=== PATIENT | male | born 1970 | race American Indian/Alaskan Native ===

== ENCOUNTER 2017-09-25 09:07 | Emergency (ER) | payer OTHER ==
[2017-09-25] MEDS ORDERED: Ibuprofen 800 MG Tab PO ONE (09:29)
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
--- NOTE | 2017-09-25 10:09 | CR ---
Clinical history: 47-year-old male left knee pain. Interpretation: Chondral malacia patella. Symmetric normal spacing of the knee joint without other arthritic degenerative change. No left knee joint effusion, fracture, dislocation or radiopaque loose joint body. No foreign bodies.
--- NOTE | 2017-09-25 10:10 | CR ---
Clinical history: 47-year-old male left lower extremity pain. 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 No sign of pathologic skeletal lesion, long bone tip/fib fracture or left knee/ankle joint dislocatio n. No foreign bodies. CONCLUSION: Mild abnormality patella. Negative left lower extremity.
--- NOTE | 2017-09-25 10:12 | CR ---
Clinical history: 47-year-old male left foot pain. Interpretation: Mild hallux valgus and early arthritic changes first metatarsophalangeal joint. No sign of foreign body, inflammatory periostitis, left foot fracture or dislocation. Very tiny heel spurs forming
== END 2017-09-25 10:10 | disposition home or self-care (01) ==
LOC: DL.ED 09:07
DX: S86.912A Strain of unspecified muscle(s) and tendon(s) at lower leg level, left leg, initial encounter (principal); S90.32XA Contusion of left foot, initial encounter; X50.1XXA Overexertion from prolonged static or awkward postures, initial encounter
CPT/HCPCS: 73562; 73590; 73620; 99284; A9270

== ENCOUNTER → 2024-02-03 | Day surgery (SDC) | payer OTHER ==
[~2024-02-03] MED LIST: Midazolam 1 MG/ML 2 ML SDV ONE; fentaNYL 100 MCG/2 ML SDV ONE
[2024-02-03] MEDS: Dextrose 5%-0.45% NaCl 1,000 ML IV SCH (07:00)
[2024-02-03] MEDS: fentaNYL 100 MCG/2 ML SDV IV ONE ×2 (07:41→07:42)
[2024-02-03] MEDS: Midazolam 1 MG/ML 2 ML SDV IV ONE ×4 (07:42→07:48)
== END ==
LOC: DL.ENDO 06:36
PROVIDERS: ATTEND Internal Medicine Gastroenterology
DX: Z12.11 Encounter for screening for malignant neoplasm of colon (principal); I10 Essential (primary) hypertension; E78.5 Hyperlipidemia, unspecified; E66.9 Obesity, unspecified
CPT/HCPCS: 45378; J2250; J3010; J7042

== ENCOUNTER 2025-06-08 20:48 | Emergency (ER) | payer MEDICAID, OTHER ==
[2025-06-08] MEDS ORDERED: Iopamidol 755 Mg/ML 100 ML Bottle IVPUSH ONE (21:06)
[2025-06-08 21:23] LABS: BASOPHILS PERCENT AUTO 0.5 % (0.0-1.0); EOSINOPHILS PERCENT AUTO 2.0 % (1.0-3.0); LYMPHOCYTES PERCENT AUTO 21.6 % (20.5-50.1); MONOCYTES PERCENT AUTO 10.4 % (2-8); NEUTROPHILS PERCENT AUTO 65.5 % (42.2-75.2); PLATELET COUNT,PLT 226 10^3/uL (150-450); RED BLOOD CELL COUNT 5.29 10^6/uL (4.6-6.2); WHITE BLOOD CELL COUNT,WBC 10.9 10^3/uL (5.0-10.0)
[2025-06-08 21:39] LABS: ALANINE AMINOTRANSFERASE,ALT 51.0 U/L (16-63); ASPARTATE AMNIOTRANSFERASE,AST 28.0 U/L (15-37); BILIRUBIN TOTAL 0.5 mg/dL (0.2-1.0); BLOOD UREA NITROGEN,BUN 23.0 mg/dL (7-18); CARBON DIOXIDE,CO2 32.0 mmol/L (21-32); CHLORIDE,CL 90.0 mmol/L (98-107); CREATININE 2.44 mg/dL (0.70-1.30); EST CRCL DRUG DOSING (CG) 38.43 mL/min; ETHANOL BLOOD MEDICAL 52.0 mg/dL (0); GLUCOSE RANDOM 104.0 mg/dL (70-99); POTASSIUM,K 3.2 mmol/L (3.5-5.1); PROTEIN TOTAL,TP 7.3 g/dL (6.4-8.2); SODIUM,NA 130.0 mmol/L (136-145); TSH ULTRASENSITIVE 6.96 uIU/mL (0.36-3.74)
[2025-06-08 21:49] LABS: A/G RATIO 1.21
[2025-06-08 21:50] LABS: ESTIMATED GFR 31.0 mL/min (>=60)
[2025-06-08 21:57] LABS: LACTIC ACID 1.4 mmol/L (0.4-2.0)
[2025-06-08 22:24] LABS: APPEARANCE,URINE CLEAR (CLEAR); GLUCOSE,URINE NEGATIVE (NEGATIVE); OCCULT BLOOD,URINE TRACE-INTACT (NEGATIVE)
[2025-06-08 22:30] LABS: AMPHETAMINES,URINE NEGATIVE (NEGATIVE); BARBITURATES,URINE NEGATIVE (NEGATIVE); MDMA (ECSTASY), URINE NEGATIVE (NEGATIVE); METHAMPHETAMINES,URINE POSITIVE (NEGATIVE); OPIATES,URINE NEGATIVE (NEGATIVE); OXYCODONE,URINE NEGATIVE (NEGATIVE); PHENCYCLIDINE,URINE NEGATIVE (NEGATIVE); TCA,URINE NEGATIVE (NEGATIVE)
[2025-06-08 22:33] LABS: EPITHELIAL CELLS,URINE FEW /HPF (NOT SEEN)
[2025-06-09 01:09] LABS: BLOOD UREA NITROGEN,BUN 20.0 mg/dL (7-18); CARBON DIOXIDE,CO2 32.0 mmol/L (21-32); CHLORIDE,CL 94.0 mmol/L (98-107); CREATININE 1.8 mg/dL (0.70-1.30); EST CRCL DRUG DOSING (CG) 52.09 mL/min; GLUCOSE RANDOM 94.0 mg/dL (70-99); POTASSIUM,K 2.7 mmol/L (3.5-5.1); SODIUM,NA 131.0 mmol/L (136-145)
[2025-06-09 01:13] LABS: ESTIMATED GFR 44.0 mL/min (>=60)
[2025-06-09] MEDS: Potassium Chloride 10 MEQ Tab.ER PO ONE (01:35)
== END 2025-06-09 03:20 | disposition home or self-care (01) ==
LOC: DL.ED 20:48
DX: M50.30 Other cervical disc degeneration, unspecified cervical region (principal); N17.9 Acute kidney failure, unspecified; R55 Syncope and collapse; E87.6 Hypokalemia; E86.0 Dehydration; Z79.899 Other long term (current) drug therapy
CPT/HCPCS: 36415; 70450; 71045; 72125; 74176; 80048; 80053; 80305; 80307; 81001; 82947; 83605; 83690; 83735; 84439; 84443; 84484; 85025; 93005; 96360; 96361; 99285; A9270; J7030

== ENCOUNTER 2025-10-03 00:43 | Emergency (ER) | payer MEDICAID, OTHER | END 2025-10-03 01:45 | LOC: DL.ED 00:43 | DX: T75.4XXA Electrocution, initial encounter (principal); I10 Essential (primary) hypertension; F17.200 Nicotine dependence, unspecified, uncomplicated; Z79.899 Other long term (current) drug therapy | CPT/HCPCS: 71045; 99283; 99284 ==